=== PATIENT | male | born 1960 | race Caucasian/White ===

== ENCOUNTER 2016-10-20 07:16 | Emergency (ER) | payer OTHER ==
[~2016-10-20] VITALS: Ht 175.3 cm; Wt 75.0 kg
[2016-10-20] MEDS ORDERED: FAMO20 PO (07:23)
[2016-10-20] MEDS ORDERED: TAMS0.4C32 PO (07:23)
[2016-10-20] MEDS ORDERED: HYDROCODONE/ACETAMINOPHEN 5-325 MG TABLET PO ONE (08:00)
[2016-10-20] MEDS ORDERED: IBUPROFEN 800 MG TABLET PO ONE (08:00)
[2016-10-20] MEDS ORDERED: AMOXICILLIN TRIHYDRATE 250 MG CAPSULE PO ONE (08:00)
[2016-10-20 08:21] VITALS: BP 168/102
== END 2016-10-20 08:24 | disposition home or self-care (01) ==
LOC: EMS 07:19
DX: K05.219 Aggressive periodontitis, localized, unspecified severity (principal); I10 Essential (primary) hypertension; K21.9 Gastro-esophageal reflux disease without esophagitis
CPT/HCPCS: 99284